=== PATIENT | female | born 1935 | race Caucasian/White ===

== ENCOUNTER → 2017-10-13 | Outpatient (CLI) | payer MEDICARE, OTHER ==
--- NOTE | 2017-10-13 17:39 | NUR ---
NSG NOTE; OUT PATIENT BLADDER SCAN PT HERE TO ROOM 115 AT 1710 VIA AMB WITH WALKER ACCOMP BY DAUGHTER. BLADDER SCAN SHOWED 458 ML URINE IN BLADDER PT VOIDED IN THE BATHROOM BUT MISSED THE HAT SO I WAS UNABLE TO MEASURE THE AMOUNT. PT STATED SHE FELT THAT SHE WAS ABLE TO EMPTY HER BLADDER THE POST VOID BLADDER SCAN SHOWED A RESIDUAL RETENTION OF 228 ML URINE. PT DISCHARGED HOME AT 1735
== END | disposition home or self-care (01) ==
LOC: RAD 16:58
PROVIDERS: ATTEND Specialist
DX: G20 Parkinson's disease (principal); R35.0 Frequency of micturition
CPT/HCPCS: 51798

== ENCOUNTER → 2017-11-20 | Outpatient (CLI) | payer MEDICARE, OTHER ==
[~2017-11-20] MED LIST: IOHEXOL 300 MG/ML 75 ML VIAL. ONE
[2017-11-20] MEDS: IOHEXOL 300 MG/ML 75 ML VIAL. IV ONE (09:28)
--- NOTE | 2017-11-20 10:36 | RAD ---
CT abdomen and pelvis without with contrast 11/20/2017 Clinical indication: Hematuria, UTI. Comparison: None. Technique: Multiple CT images of the abdomen and pelvis were obtained without and following the intravenous administration of 75 mL Omnipaque 300. Postcontrast images were obtained in the portal venous and delayed phases. PQRS Compliance Statement: One or more of the following individualized dose reduction techniques were utilized for this examination: 1. Automated exposure control 2. Adjustment of the mA and/or kV according to patient size 3. Use of iterative reconstruction technique Findings: Heart size is normal. Three-vessel coronary artery calcifications. There are multiple bibasilar pulmonary cysts. Liver unremarkable. Spleen is normal in size with sequela of prior granulomatous disease. Cholelithiasis in a nondilated gallbladder and calcification of the fundal gallbladder wall. Mild central intrahepatic bile or ductal dilatation without extrahepatic bile duct dilatation. Adrenal glands and pancreas are unremarkable. There is mild cortical scarring at the posterior superior pole of the right kidney. No right hydronephrosis or nephrolithiasis. There is adequate opacification of the upper right renal collecting system without suspicious intraluminal filling defect. Left kidney present without hydronephrosis. There is a nonobstructive calculus in the inferior pole the left kidney measuring 0.7 cm. There is adequate opacification of the upper left renal collecting system without suspicious intraluminal filling defect. Abdominal aorta is normal in caliber with moderate aortoiliac calcified atheromatous disease. No retroperitoneal or mesenteric lymphadenopathy. Small and large bowel loops are normal in caliber without obstruction. Appendix is normal in appearance. Moderate sigmoid diverticulosis without evidence of acute diverticulitis. There is circumferential thickening of the mid and distal sigmoid as seen on series 2/image 119 with preservation of the internal aeration of the diverticula. Mildly distended and partially opacified urinary bladder is unremarkable. Uterus unremarkable. No iliac or inguinal lymphadenopathy. No pelvic free fluid. There is a tiny fat-containing umbilical hernia. Diffuse bony demineralization. Prominent spear endplates was noted deformity at L4. Multilevel lumbar spondylosis to moderate degree at L3-L4 and L5-S1. There are no destructive osseous lesions. Impression: 1. 0.7 cm nonobstructive left renal calculus. 2. No right urolithiasis. 3. No suspicious upper urothelial tract filling defect to suggest malignancy. 4. Sigmoid diverticulosis with circumferential thickening, which may be due to chronic diverticular disease, though malignancy cannot be excluded. Colonoscopy is recommended, if not already performed. 5. Cholelithiasis and partial calcification of the gallbladder wall, can predispose to gallbladder carcinoma. Clinical correlation is recommended. 6. 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 Clinical correlation and CT chest is recommended for further evaluation.
== END | disposition home or self-care (01) ==
LOC: CT 08:52
PROVIDERS: ATTEND Specialist
DX: K57.30 Diverticulosis of large intestine without perforation or abscess without bleeding (principal); K80.20 Calculus of gallbladder without cholecystitis without obstruction; N20.0 Calculus of kidney; K42.9 Umbilical hernia without obstruction or gangrene; N39.0 Urinary tract infection, site not specified; M47.897 Other spondylosis, lumbosacral region; R91.8 Other nonspecific abnormal finding of lung field
CPT/HCPCS: 74178; Q9967